=== PATIENT | male | born 1965 | race Hispanic/Latino ===

== ENCOUNTER → 2022-05-23 10:46 | Outpatient (CLI) | payer OTHER, SELFPAY ==
--- NOTE | ~2022-05-23 | CT_ITS ---
EXAMINATION: CT lung screening DATE: 05/23/2022 11:09 INDICATION: Personal history of tobacco abuse. Lung cancer screening. TECHNIQUE: Computed tomography (CT) of the chest was performed without intravenous contrast. The dose -length product was 117.60 mGy-cm. Automated exposure control and iterative reconstruction technique were employed. COMPARISON: None FINDINGS: Heart size is normal. No significant pleural or pericardial effusion. No endobronchial lesi ons. No focal airspace consolidation. No thoracic lymphadenopathy. Bibasilar atelectasis. No endobron chial lesions. There is a 2 mm right upper lobe nodule. No pneumothorax. Mild thoracic spondylosis. N o lytic or blastic lesions. IMPRESSION: 1. Lung-RADS category 2: Benign appearance or behavior. Continue annual screening with noncontrast lo w-dose chest CT in 12 months. Reviewed, dictated and finalized at location A. ALION FIRE CHIEF IMPRESSION: 1. Lung-RADS category 2: Benign appearance or behavior. Continue annual screeni ng with noncontrast low-dose chest CT in 12 months.
== END ==
PROVIDERS: PCP Internal Medicine; Visit Provider Internal Medicine
DX: Z12.2 Encounter for screening for malignant neoplasm of respiratory organs (principal); Z87.891 Personal history of nicotine dependence
CPT/HCPCS: 71271

== ENCOUNTER → 2023-06-02 07:52 | Outpatient (CLI) | payer OTHER, SELFPAY ==
--- NOTE | ~2023-06-02 | CT_ITS ---
EXAMINATION: CT lung screening DATE: 06/02/2023 08:22 INDICATION: Personal history nicotine dependence, current smoker with 43 pack year history TECHNIQUE: Computed tomography (CT) of the chest was performed without intravenous contrast. The dose -length product (DLP) was 147.31 mGy-cm. Automated exposure control and iterative reconstruction tech [employer] were employed. COMPARISON: 05/23/2022 FINDINGS: There is mild emphysema. There is a stable 2 mm nodule of the right upper lobe on image 31. There is mild atelectasis or scarring in the right lower lobe. No pleural effusion or pneumothorax. The lungs are free of acute opacities. No pathologically enlarged thoracic lymph nodes are identified . The heart size is normal. There is mild thoracic spondylosis. IMPRESSION: 1. Lung-RADS category 2: Benign appearance or behavior. Continue annual screening with noncontrast lo w-dose chest CT in 12 months. Reviewed, dictated and finalized at location B. NG MACHINE OPERATOR IMPRESSION: 1. Lung-RADS category 2: Benign appearance or behavior. Continue annual screeni ng with noncontrast low-dose chest CT in 12 months.
== END ==
PROVIDERS: PCP Internal Medicine; Visit Provider Internal Medicine
DX: Z12.2 Encounter for screening for malignant neoplasm of respiratory organs (principal); Z87.891 Personal history of nicotine dependence
CPT/HCPCS: 71271

== ENCOUNTER 2024-05-21 11:54 | Outpatient (CLI) | payer OTHER, SELFPAY ==
--- NOTE | 2024-06-16 10:34 | P.SLEEP_ITS ---
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 He has a diagnosis of obstructive sleep apnea, his machine was from 2011 and he needs a new device. He says he can not use is current machine because it is hard to breathe with it. He has lost some weight. The manager technology note also indicates that the patient has tried a mandibular advancement device because he was intolerant of CPAP. He occasionally snores, and it is rarely loud enough that others complain. He does not awaken from sleep feeling short of breath or awaken at night with heartburn, belching or coughing. He occasionally has difficulty sleeping when he has a cold. He does not sweat excessively at night or notice his heart pounding or beating irregularly at night. He rarely falls asleep during the day, never involuntarily or while driving. He does not have loss of muscle tone with strong emotion. He does not have daytime difficulties due to excessive sleepiness, he is a laborer salvage. He does not feel paralyzed on waking or falling asleep. He does not feel afraid to go to sleep. He rarely has nightmares. He occasionally remembers his dreams. He rarely has racing thoughts and rarely has feelings of sadness or depression. He never feels anxiety. He occasionally has muscular tension, occasionally notices parts of his body jerking. He does not kick at night nor does he have crawling or aching feelings in his legs. He does not have any kind of leg pain at night. He does not have morning jaw pain. He does not grind his teeth at night. He occasionally is bothered by pain during the day. He never is awakened by pain at night. He occasionally wakes up feeling stiff in the morning, occasionally awakens with sore achy muscles. He does not wake up with pain in the neck and spine. He has memory problems and concentration difficulties due to a stroke. Normal bedtime is 7:00 p.m. falling asleep immediately waking once at night in the middle of the night. He may awaken and stay awake afterwards. He keeps a similar schedule on weekends. He estimates getting 7 hours of sleep at night. He may feel refreshed after a short 10-15 minute nap. Most of the time he feels adequate on waking. Habits: Tobacco : Former smoker, quit 6 months ago Coffee: 2 cups of coffee a day Alcohol: none Recreational substances: none [facility] Past Medical History Medical History (Updated 06/16/24 @ 11:39 by Geri Salamanca MD) Obstructive sleep apnea Hyperlipidemia Gait abnormality Dysphagia Vision abnormalities Left-sided neglect Acute right MCA stroke HTN (hypertension) Social History Social History Smoking status: Current some day smoker Tobacco type: cigarettes Alcohol intake: former Substance use: unknown Substance use type: does not use Do You Feel Safe in your Home?: Yes Lack of Transportation: No Lack of Food: Never True Current Housing: I Have Housing Concerned About Future Housing: No Difficulty Paying Gas/Electric Bills: No Difficulty Paying for Meds: No Currently Unemployed: No Education: Grade School Difficulty w/ Childcare or Family Care: No Spiritual care concerns: No Medications Home Medications ?Medication ?Instructions ?Recorded ?Confirmed ?Type acetaminophen 325 mg tablet 650 mg (2 x 325 mg) PO Q6H PRN 12/26/23 Rx Pain 1-10 #90 tabs aspirin 81 mg chewable tablet 81 mg PO DAILY #30 tabs 12/26/23 Rx atorvastatin 80 mg tablet 80 mg PO HS #30 tabs 12/26/23 Rx lisinopril 5 mg tablet 5 mg PO DAILY #30 tabs 12/26/23 Rx Sleep Procedure A full night polysomnogram using the [employer] multi-channel system recorded the standard physiologic parameters including EEG, EOG, submentalis EMG, anterior tibialis EMG, EKG, body position, nasal and oral airflow using nasal pressure sensor and thermistor. Respiratory parameters of chest and abdominal movements were recorded with Respiratory Inductance Plethysmography belts. Oxygen saturation was recorded by pulse oximetry. Video monitoring was also performed. Sleep stages, periodic limb movements, and EEG arousals were scored in 30 second epochs according to the criteria of the AASM Scoring Manual. The Apnea-Hypopnea Index was calculated using CMS guidelines for definition of hypopnea while scoring respiratory events. This was ordered as a split night study however he did not qualify to start CPAP therefore this was conducted as a full night basic nocturnal polysomnogram. He attempted to sleep supine but was unable to sleep in this position. Sleep Architecture The total recording time was 564.2 minutes. The total sleep time was 325.0 m inutes. Sleep latency was 6.8 minutes. REM latency was 70.0 minutes. Sleep efficiency was 57.6%. The patient had 17 awakenings for an awakening index of 3.1. Wake after sleep onset time was 232.0 minutes. The patient spent 29.0 minutes, 8.9% of total sleep time in Stage N1. The patient spent 177.5 minutes, 54.6% in Stage N2. The patient spent 39.0 minutes, 12.0% in Stage N3. The patient spent 79.5 minutes, 24.5% in Stage REM sleep. Respiratory Analysis The patient had 2 hypopneas, no obstructive apneas, no mixed apneas, and no central apneas for an overall Apnea Hypopnea Index of 0.4. The REM Apnea Hypopnea Index was 4.5. The NREM Apnea Hypopnea Index was 0. The patient had a Central Apnea Hypopnea Index of 0. There were no Respiratory Effort Related Arousals. The Respiratory Disturbance Index is 1.7 events per hour. There was no evidence of Олег-Ward Respirations. Arousals There were 31 total arousals for an arousal index of 5.7. There were 19 spontaneous arousals for an index of 3.5. There were 8 arousals due to respiratory events for an index of 1.5. There were 3 arousals due to periodic limb movements for an index of 0.6. There were 2 arousals due to isolated limb movements for an index of 0.4. Periodic Limb Movements The patient had 32 isolated limb movements with an index of 5.9. The patient had 10 periodic limb movements with an index of 1.8. Patient had a total of 42 limb movements with a total limb movement index of 7.8. Oximetry Data The patient had an average oxygen saturation of 95.5% in sleep with a minimum oxygen saturation of 90% and a maximum oxygen saturation of 98%. The patient had 2 oxygen desaturations that were 4% or greater resulting in an Oxygen Desaturation Index of 0.4. The patient spent no time with an oxygen saturation below 88%. Snoring Profile Snoring was mild and intermittent. Cardiac Profile The EKG showed normal sinus rhythm, average pulse rate of 47.3 bpm with a minimum pulse of rate of 42 bpm and a maximum pulse rate of 70 bpm. No arrhythmias noted. EEG Profile Unremarkable, no evidence of seizures. Assessment and Plan Assessment and Plan (1) Snoring: Code(s): R06.83 - Snoring Status: Acute Assessment and Plan: This basic nocturnal polysomnogram on 05/21/2024 does not show significant sleep disordered breathing. The apnea-hypopnea index is 0.4, the lowest saturation is 90% and the patient had mild intermittent snoring. The patient did not have s ignificant limb movements during the study. He did have a low sleep efficiency of 57.6%, normal sleep efficiency is 80%. This means that the patient spent much more of the night awake than expected for a normal person. This may be due to taking naps in the day. He had normal sleep architecture with 24.5% REM. The patient did not spend time on his back while sleeping. This may have reduced the number of obstructive events. It is possible that his weight loss has led to his elimination of obstructive sleep apnea. Every night of sleep is different. He may sleep differently at home and on another night he may show more evidence of obstructive sleep apnea however this study is negative for apnea desaturation or Олег-Ward respiration. He does not have other sleep fragmenting processes that would lead to daytime dysfunction. Data The data obtained during this sleep study is adequate for interpretation. Certification This sleep study has been reviewed by a board certified sleep medicine physician.
[2024-06-16 11:46] VITALS: BMI 27.9
== END 2024-05-22 06:39 | disposition home or self-care (01) ==
PROVIDERS: PCP Internal Medicine; Visit Provider Internal Medicine
DX: R06.83 Snoring (principal); G47.30 Sleep apnea, unspecified
CPT/HCPCS: 95810

== ENCOUNTER 2024-11-19 09:34 | Outpatient (CLI) | payer OTHER, SELFPAY ==
--- NOTE | ~2024-11-19 | CT_ITS ---
CT Scan of the Chest without Contrast: Clinical Indication: Lung cancer screening, nicotine dependence Technique: Contiguous sections were acquired throughout the chest without intravenous contrast. Dose reduction technique was used on this scan by utilizing automated exposure control and iterative recon struction technique. The dose-length product (DLP) was 142.60 mGy-cm. COMPARISON: 06/02/2023 Findings: There is no evidence of any significant mediastinal, hilar or axillary lymphadenopathy. The coronary artery calcifications are present. There is no evidence of pleural or pericardial effusion. The lungs are clear. No pulmonary nodules or infiltrates are noted. Images through the upper abdomen reveal no abnormalities. Impression: Lung RADS 1: Negative. 12 month follow-up screening CT advised. Reviewed, dictated and finalized at location . Impression: Lung RADS 1: Negative. 12 month follow-up screening CT advised.
--- OUTSIDE RECORDS SUMMARY | 2024-11-19 09:57 | XMS_ITS | Clinical Summary ---
Author Organization [facility] Address [address] [place] [address] Care Team Providers Care Contract Attorney Name Role Phone Da Del Rio MD Primary Care Provider [phone] Source Comments [facility],non-owned Affiliates and Associated Physician Practices is amultiple site organization consisting of ambulatory clinics and hospital sitesin [place], [place], [place] and [place]. This disclosure is being madepursuant to the Care Everywhere program and may not contain all information available regarding this patient. Last updated 18.[facility] Allergies Active Allergy Reactions Criticality Noted Date Comments Augmentin Rash Medium 04/17/2024 Medications * Be aware that medications may not be up to date on this document. Alwaysverify current medications with the patient. lisinopril (Prinivil; Zestril) 10 MG tablet Take 1 (one) tablet by mouth once daily Taking 5mg daily. 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 Received tissue plasminogen activator (t-PA) less than 24 hours prior to arrival 12/11/2023 Retained metal fragments 12/11/2023 Weakness 12/10/2023 Facial droop 12/10/2023 Left-sided weakness 12/10/2023 Hypertension 12/10/2023 Acute ischemic right MCA stroke 12/10/2023 Encounters Date Type Department Care Team Description 10/08/2024 1:10 AM CDT Clinical Support [facility] - Cardiology [address], [address] [place] [address] Acute ischemic right MCA stroke (HCC) 09/03/2024 1:10 AM CDT Clinical Support [facility]iology [address] [facility], [address] [place] [address] Acute ischemic right MCA stroke from Last 3 Months Social History Tobacco Use Types Packs/Day Years Used Date Smoking Tobacco: Former Cigarettes Smokeless Tobacco: Never Alcohol Use Standard Drinks/Week Comments Not Currently 0 (1 standard drink = 0.6 oz pur e alcohol) AUDIT-C Answer Date Recorded Q1: How often do you have a drink containing alcohol? Never 12/10/2023 Q2: How many drinks containi ng alcohol do you have on a typical day when you are drinking? Patient does not drink Q3: How often do you have si x or more drinks on one occasion? Never 12/10/2023 Overall Financial Resource Strain (CARDIA) Answe r Date Recorded How hard is it for you to pa y for the very basics like food, housing, medical care, and heating? Not very hard 12/10/2023 PHQ-2 Answer Date Recorded Patient Health Questionnaire-2 Score 0 12/16/2023 [facility] Occupat ional Health - Occupational Stress Questionnaire Answer Date Recorded Do you feel stress - tense, restless, nervous, or anxious, or unable to sleep at night because your mind is troubled all the time - these days? Not at all 12/10/2023 Hunger Vital Sign Answer Date Recorded Within the past 12 months, y ou worried that your food would run out before you got the money to buy more. Never true 12/10/19 24 Within the past 12 months, t he food you bought just didn't last and you didn't have money to get more. Never true 12/10/2023 PRAPARE - Transportation Answer Date Re corded In the past 12 months, has l ack of transportation kept you from medical appointments or from getting medications? No 11/18 In the past 12 months, has l ack of transportation kept you from meetings, work, or from getting things needed for daily living? No 12/10/2023 Housing Stability Vital Sign Answer Arnie e Recorded In the last 12 months, was t here a time when you were not able to pay the mortgage or rent on time? No 12/10/2023 In the last 12 months, how many places have you lived? 1 12/10/2023 In the last 12 months, was t here a time when you did not have a steady place to sleep or slept in a [place] health care facility (including now)? 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 Gender Identity Not on file Sexual Orientation Not on file Last Filed Vital Signs Vital Sign Reading Time Taken Comments Blood Pressure 118/73 04/17/2024 12:44 PM CDT Pulse 56 04/17/2024 12:44 PM CDT Temperature 36.6 C (97.8 F) 12/16/2023 7:29 AM CDT Respiratory Rate 10 04/17/2024 12:44 PM CDT Oxygen Saturation 98% 01/17/2024 2:16 PM CDT Inhaled Oxygen Concentration - - Weight 76.2 kg (168 lb) 04/17/2024 12:44 PM CDT Height 167.6 cm (5' 6) 12/13/2023 7:00 AM CDT Body Mass Index 27.12 12/13/2023 7:00 AM CDT Plan of Treatment Upcoming Encounters Date Type Department Care Team (Late st Contact Info) Description 12/17/2024 1:10 AM CDT Clinical Support [facility] - Cardiology [address] [facility], [address] [address] 01/21/2025 1:10 AM CDT Clinical Support [facility] - Cardiology [address] [facility], [address] [address] 02/25/2025 1:10 AM CDT Clinical Support [facility] - Cardiology [address] [facility], [facility] [address] [place] [phone] Health Maintenance Due Date Last Done Comments COLOGUARD (AGES 45-75) - COLON CA SCREENING 1966 COLON MONITORING 1966 COLONOSCOPY - COLON CA SCREENING 1966 CT COLONOGRAPHY - COLON CA SCREENING 1966 Colorectal Cancer Screening 1966 FIT - COLON CA SCREENING 1966 FLEX SIG - COLON CA SCREENING 1966 HIV SCREENING 1981 HEPATITIS C SCREENING 09/18/1984 DTAP/TDAP/TD VACCINES (1 - Tdap) 1985 HEPATITIS B VACCINE (1 of 3 - 19+ 3-dose series) 1985 PNEUMOCOCCAL VACCINE 50+ (1 of 1 - PCV) 2016 ZOSTER VACCINE (1 of 2) 2016 COVID-19 VACCINE ( season) 2024 05/27/2021, 10/06/2020, 09/14/2020 DEPRESSION SCREENING 06/19/2024 12/10/2023 INFLUENZA VACCINE (Season Ended) 2025 SCREENING FOR DIABETES 12/15/2026 , 12/15/2023, 12/14/2023, Additional history exists HIB VACCINE Aged Out No longer eligi ble based on patient's age to complete this topic HPV VACCINE Aged Out No longer eligi ble based on patient's age to complete this topic MENINGOCOCCAL (Group B) VACCINE SHARED DECISION-MAKING Aged Out No longer eligible based on patient's age to complete this topic MENINGOCOCCAL GROUPS A/C/Y/W VACCINE Aged Out No longer eligible based on patient's age to complete this topic Medical Devices Implanted Type Area Labor Specialist Device Identifier Shelf Expiration Date Model / Serial / Lot Sys Crd Mntr Rvl Linq Ii - [id number] Implanted:Qty: 1 on 12/15/2023 by Chavo Martinez MD at [facility] [id number] 02/25/2025 LNQ22 SYS / [id number] / N/A Description:R-wave: 0.47 Procedures Procedure Name Priority Date/Time Associated Diagnosis Comments GA ILR DEVICE INTERROGAT REMOTE Routine 10/21/2024 10:03 AM CDT Acute ischemic right MCA stroke (HCC) CARDIAC PROCEDURE ORDER 10/07/2024 GA ILR DEVICE INTERROGAT REMOTE Routine 09/09/2024 1:26 PM CDT Acute ischemic right MCA stroke CARDIAC PROCEDURE ORDER 09/02/2024 BASIC METABOLIC PANEL (CALCIUM TOTAL) Routine 12/16/2023 5:28 AM CDT from Last 3 Months or Most Recently Relevant to Health Maintenance Results * GA ILR DEVICE INTERROGAT REMOTE (10/21/2024 10:03 AM CDT) Narrative Gary Rawls MD - 10/21/2024 10:03 AM CDT Gary Rawls MD 10/21/2024 10:03 AM Dear Rafael Esteban, I reviewed the remote interrogation of your loop recorder. Your device's sensing is appropriate and stable. During this most recent monitored period ending on 10/07/2024 your atrial fibrillation/tachycardia burden was 0% and you had no significant arrhythmias. Device function is normal, no programming changes are required, and no medications will need to be changed. Please call our offices if you have any further questions. Sincerely, Gary Rawls 10/21/2024 us Gary Rawls MD PROCEDURE/MINOR SURGICAL ORDERAB LES Final Result * CARDIAC PROCEDURE ORDER (10/07/2024) Only the most recent of2 resultswithin the time period is included. Narrative 10/07/2024 Ordered by an unspecified provider. us Scanned Document CARDIAC SERVICES ORDERABLES Fin al Result * GA ILR DEVICE INTERROGAT REMOTE (09/09/2024 1:26 PM CDT) Narrative Renata Wong MD - 09/09/2024 1:26 PM CDT Renata Wogn MD 09/09/2024 1:27 PM Remote Interrogation: Pertinent Findings: Device function within normal limits. No events noted. Renata Wong MD Cardiac Electrophysiology Renata Wong MD PROCEDURE/MINOR SURGICAL ORDERAB LES Final Result * (ABNORMAL) BASIC METABOLIC PANEL (CALCIUM TOTAL) (12/16/2023 5:28 AM CDT) BUN 17 7 - 26 mg/dL 12/16/2023 6:51 AM [facility] Creatinine 0.71 0.71 - 1.16 mg/dL 12/16/2023 6:51 AM [facility] Sodium 140 136 - 145 mmol/L 12/16/2023 6:51 AM [facility] Potassium 4.2 3.5 - 4.5 mmol/L 12/16/2023 6:51 AM [facility] Chloride 107 98 - 107 mmol/L 12/16/2023 6:51 AM [facility] CO2 22 22 - 29 mmol/L 12/16/2023 6:51 AM [facility] Glucose 84 70 - 115 mg/dL 12/16/2023 6:51 AM [facility] Calcium 9.5 8.4 - 10.2 mg/dL 12/16/2023 6:51 AM [facility] Anion Gap 11 6 - 16 12/16/2023 6:51 AM [facility] BUN/Creatinine Ratio 24(H) 7 - 23 12/16/2023 6:51 AM [facility] Osmolality Calculated 291 275 - 295 mOsm/kg 12/16/2023 6:51 AM [facility] eGFR by CKD-EPI >90 >=90 mL/min/1.7 3 m2 12/16/2023 6:51 AM [facility] Blood BLOOD SPECIMEN / Unknown Lab Venipuncture / Unknown 12/16/2023 5:28 AM CDT 12/16/2023 6:21 AM T Domenic Marion MD LAB - CHEMISTRY ORDERABLES Fin al Result [facility] [address] [place] [address], [facility] [phone] from Last 3 Months or Most Recently Relevant to Health Maintenance Insurance [facility] Advance Directives * Full Code (Latest Code Status on File) Date Activated Date Inactivated Comments 12/10/2023 5:16 PM 12/16/2023 5:03 PM Care Teams Contract Attorney Relationship Specialty Start Date End Date Da Del Rio MD [address] [address] PCP - General 10/07/11
--- OUTSIDE RECORDS SUMMARY | 2024-11-19 09:57 | XMS_ITS | Encounter Summary ---
Author Organization [facility] Health Address [address] [facility] [place] [address] Care Team Providers Care Operations Specialists Name Role Phone Da Del Rio MD Primary Care Provider [phone] Encounter Details Date Type Department Care Team (Late st Contact Info) Description 12/12/2023 Ophth Exam [facility] - Ophthalmology [address] [place] [phone] Yoly Herrera MD [address] [place] [id number] Social History Tobacco Use Types Packs/Day Years Used Date Smoking Tobacco: Some Days Cigarettes Smokeless Tobacco: Never Alcohol Use Standard [...] Recorded Patient Health Questionnaire-2 Score 0 12/16/2023 [facility] [place] of Occupat ional Health - Occupational Stress [...] place to sleep or slept in a mcc (including now)? 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 Answer Date of Assessment Author No 12/10/2023 8:43 PM Temi Galeano RN * Is person blind or have serious difficulty seeing? Answer Date of Assessment Author No 12/10/2023 8:43 PM Temi Galeano RN * Does person have serious difficulty walking/climbing stairs? Answer Date of Assessment Author No 12/10/2023 8:43 PM Temi Galeano RN * Does person have difficulty dressing/bathing? Answer Date of Assessment Author No 12/10/2023 8:43 PM Temi Galeano RN * Does person have difficulty doing errands alone? Answer Date of Assessment Author No 12/10/2023 8:43 PM Temi Galeano RN * Over the past 2 weeks, how often have you been bothered by any of the following problems? Question Answer Date of Assessment Author Little interest or pleasure in doing things Not at all 12/14/2023 7:48 AM MATTHEWT Hima Taylor RN Feeling down, depressed, or hopeless Not at all 12/14/2023 7:48 AM MATTHEWT Hima Taylor RN Patient Health Questionnaire -2 Score 0 12/14/2023 7:48 AM CDT Hima Taylor RN * Question Answer Date of Assessment Author Trouble falling or staying asleep, or sleeping too much Not at all 12/14/2023 5:15 AM MATTHEWT [place] RN Feeling tired or having elizabeth le energy Not at all 12/14/2023 5:15 AM MATTHEWT [place] RN Poor appetite or overeating Not at all 12/14/2023 5: 15 AM MATTHEWT [place] RN Feeling bad about yourself - or that you are a failure or have let yourself or your family down Not at all 12/14/2023 5:15 AM MATTHEWT [place] RN Trouble concentrating on things, such as reading the newspaper or watching television Not at all 12/14/2023 5:15 AM MATTHEWT [place] RN Moving or speaking so slowly that other people could have noticed? Or the opposite - being so fidgety or restless that you have been moving around a lot more than usual. Not at all 12/14/2023 5:15 AM Sulma Martin RN Thoughts that you would be better off or hurting yourself in some way Not at all 12/14/2023 5:15 AM MATTHEWT [place] RN Patient Health Questionnaire -9 Score 0 12/14/2023 5:15 AM MATTHEWT [place] RN documented as of this encounter Mental Status * Does person have difficulty concentrating/remembering/making decisions? Answer Entry Date Author No 12/10/2023 8:43 PM MATTHEWT Temi Oliveros RN documented in this encounter Plan of Treatment Upcoming Encounters Date Type Department Care Team (Late st Contact Info) Description 12/17/2024 1:10 AM CDT Clinical Support [facility] - Cardiology [address] [facility], [facility] [place] [address] 01/21/2025 1:10 AM CDT Clinical Support [facility] - Cardiology [address], [facility] [place] [address] 02/25/2025 1:10 AM CDT Clinical Support [facility] - Cardiology [address] [facility], [address] [address] documented as of this encounter Visit Diagnoses Not on filedocumented in this encounter Care Teams Operations Specialists Relationship Specialty Start Date End Date Da Del Rio MD [address] [place] [address] [address] [place] [phone] PCP - General 10/07/11 documented as of this encounter
--- OUTSIDE RECORDS SUMMARY | 2024-11-19 09:57 | XMS_ITS | Encounter Summary ---
Author Organization [facility] Health Address [address] [facility] [place] [address] Care Team Providers Care Carpenters Name Role Phone Da Del Rio MD Primary Care Provider [phone] Encounter Details Date Type Department Care Team (Late st Contact Info) Description 12/11/2023 Ophth Exam [facility] - Ophthalmology [address] [place] [phone] Yoly Herrera MD [address] [place] [phone] Social History Tobacco Use Types Packs/Day Years [...] Date Recorded Patient Health Questionnaire-2 Score 0 12/14/2023 [facility] [place] of Occupat ional Health - Occupational Stress [...] on file 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 Gender Identity Not on file Sexual Orientation [...] [facility] [address] [facility], [facility] [place] [address] 01/21/2025 1:10 AM CDT Clinical Support [facility] - Cardiology [address] [facility], [facility] [place] [address] 02/25/2025 1:10 AM CDT Clinical Support [facility] - Cardiology [address] [facility], [address] [address] documented as of this encounter Visit Diagnoses Not on filedocumented in this encounter Care Teams Carpenters Relationship Specialty Start Date End Date Da Del Rio MD [address] [place] [address] [address] [place] [phone] PCP - General 10/07/11 documented as of this encounter
--- OUTSIDE RECORDS SUMMARY | 2024-11-19 09:57 | XMS_ITS | Data Portability ---
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 Not available 01/17/2024 11:40:28 Plan of Treatment Reminders Order Date Submit Date Provider Last Modified By Organization Details Last Modified Time Details Appointments Any 15 2024 08:15A M Da Del Rio MD Not available Not available Not available Lab urinalysi s, complete [email or web address] (Lab), [address] [place], [address], 07/04/2024 08:08:25 lipid panel, serum 2023 024 [facility] (Lab), [address] [place], [address], 03/04/2024 18:47:11 CMP, serum or plasma [email or web address] (Lab), [address] [place], [address], 03/11/2024 08:24:26 Referral None recorded. Procedures None recorded. Surgeries None recorded. Imaging LDCT, chest, for lung cancer screening - Updated order for 5. 2024 025 [facility] ([facility]), [address] [facility], [place], [address], 11/19/2024 10:10:41 home sleep study - Please call patient to schedule. 2023 024 [email or web address] [facility] ([facility]), [address] [place] [address], [address], 05/09/2024 17:57:29 Medication Orders trazodone 50 mg tablet 2024 025 [email or web address] [facility], [address] [place] [address], [place], [address], 06/27/2024 12:21:10 Patient TargetsNo targets recorded. Patient Instructions Encounter Date Encounter Id Patient Instructions Last Modified By Organization Details Last Modified Time 01/17/2024 [id number] Thank you for your visit to our office today. We would like to request that you reach out to your referring or previous provider and request that they send us a Summary of Care in electronic form, so that we may have it on file in your medical record. At your visit, we had the medical records we needed to provide you with the best possible care; however, for insurance purposes, an electronic Summary of Care is beneficial. Thank you for your assistance in obtaining this information and we look forward to providing continued care to you. Please review your medication list from the Summary of Care for this visit. If there are any differences from what you are currently taking at home, please call us to discuss. [email or web address] Not available 01/17/2024 09:13:14 Homebound Status: Required Home Health Services: Durable Medical Equipment needed: Billing Guidelines CPT code 30150- Transitional Care Management services with moderate medical decision complexity (qfxc-xg-mlur visit within 14 days of discharge). CPT code 88989- Transitional Care Management services with high medical decision complexity (ixcd-od-sbmr visit within 7 days of discharge). [email or web address] Not available 01/17/2024 09:13:14 02/26/2024 [id number] Thank you for your visit to our office today. We would like to request that you reach out to your referring or previous provider and request that they send us a Summary of Care in electronic form, so that we may have it on file in your medical record. At your visit, we had the medical records we needed to provide you with the best possible care; however, for insurance purposes, an electronic Summary of Care is beneficial. Thank you for your assistance in obtaining this information and we look forward to providing continued care to you. Please review your medication list from the Summary of Care for this visit. If there are any differences from what you are currently taking at home, please call us to discuss. Not available 02/26/2024 11:04:57 Homebound Status: Required Home Health Services: Durable Medical Equipment needed: Billing Guidelines CPT code 14886- Transitional Care Management services with moderate medical decision complexity (sxvd-eo-fkdm visit within 14 days of discharge). CPT code 97899- Transitional Care Management services with high medical decision complexity (lotp-rl-rifn visit within 7 days of discharge). Not available 02/26/2024 11:04:57 06/27/2024 [id number] advance care planning: care instructions Not available 06/27/2024 13:04:44 advance directives: care instructions Not available 06/27/2024 13:04:44 [place] Advance Directives Not available 06/27/2024 13:04:44 risk assessment* Not available 06/27/2024 13:04:44 Thank you for your visit to our office today. We would like to request that you reach out to your referring or previous provider and request that they send us a Summary of Care in electronic form, so that we may have it on file in your medical record. At your visit, we had the medical records we needed to provide you with the best possible care; however, for insurance purposes, an electronic Summary of Care is beneficial. Thank you for your assistance in obtaining this information and we look forward to providing continued care to you. Please review your medication list from the Summary of Care for this visit. If there are any differences from what you are currently taking at home, please call us to discuss. INFLUENZA VACCINE Recommended today, but patient declined Ordered Patient will get at local pharmacy/health department Shayleemaryellen nt has egg allergy Next vaccination to be given fall Next vaccination to be given fall TD/TDAP Patient will get at local pharmacy/health department PNEUMONIA VACCINE Patient will get at local pharmacy/health department SHINGLES Patient will get at local pharmacy/health department PSA No screening necessary patient is up to date COLORECTAL SCREENING No screening necessary patient is up to date DEPRESSION SCREENING Positive BMI Appropriate NUTRITION Continue healthy eating & exercise PHYSICAL ACTIVITY Appropriate physical activity ALCOHOL USE No alcohol use TOBACCO USE former smoker LUNG CANCER SCREENING Non Smoker-not indicated Recomm endation for Lung Cancer Screening with LDCT- ordered Recommen dation for Lung Cancer Screening with LDCT- Patient declined Not indicated until age 51 Lung Cancer Screening with LDCT- 05/22/2023 SEXUALLY ACTIVE Yes, Patient is in monogamous relationship HEPATITIS C SCREENING Not indicated GLUCOSE SCREENING Not needed LIPID SCREENING Not needed [email or web address] Not available 06/27/2024 12:30:12 Homebound Status: Required Home Health Services: Durable Medical Equipment needed: Billing Guidelines CPT code 22293- Transitional Care Management services with moderate medical decision complexity (mofr-ld-jqxp visit within 14 days of discharge). CPT code 77779- Transitional Care Management services with high medical decision complexity (aczv-qx-bnwn visit within 7 days of discharge). [email or web address] Not available 06/27/2024 11:05:08 Reason for Referral None Reported. Results Created Date Observation Date Name Description Value Unit Range Abnormal Flag Note LastModifiedBy Organization Detail LastModifiedTime 06/27/1906/27/2024 URINA LYSIS COMPL ETE, IRIS color LIGHT- YELLOW Not Available [facility] (Lab) [address] [place], [address], 06/27/2024 19:09:30 06/27/1906/27/2024 URINA LYSIS COMPL ETE, IRIS appear CLEAR Not Available [facility] (Lab) [address] [place], [address], 06/27/2024 19:09:30 06/27/1906/27/2024 URINA LYSIS COMPL ETE, IRIS specific gravity 1.008 1.001- 1.030 Not Available [facility] (Lab) [address] [place], [address], 06/27/2024 19:09:30 06/27/19 25 06/27/2024 URINA LYSIS COMPL ETE, IRIS pH 7.0 pH_un its 5.0-9. 0 Not Available [facility] (Lab) [address] [place], [address], 06/27/2024 19:09:30 06/27/19 25 06/27/2024 URINA LYSIS COMPL ETE, IRIS leukocytes NEGATI VE ashley/u L negati ve- Not Available [facility] (Lab) [address] [place], [address], 06/27/2024 19:09:30 06/27/1906/27/2024 URINA LYSIS COMPL ETE, IRIS nitrite NEGATI VE negati ve- Not Available [facility] (Lab) [address] [place], [address], 06/27/2024 19:09:30 06/27/19 25 06/27/2024 URINA LYSIS COMPL ETE, IRIS protein NEGATI VE mg/dL negati ve- Not Available [facility] (Lab) [address] [place], [address], 06/27/2024 19:09:30 06/27/19 25 06/27/2024 URINA LYSIS COMPL ETE, IRIS glucose NORMAL mg/dL normal - Not Available [facility] (Lab) [address] [place], [address], 06/27/2024 19:09:30 06/27/19 25 06/27/2024 URINA LYSIS COMPL ETE, IRIS ketones NEGATI VE mg/dL negati ve- Not Available [facility] (Lab) [address] [place], [address], 06/27/2024 19:09:30 06/27/19 25 06/27/2024 URINA LYSIS COMPL ETE, IRIS urobilinogen NORMAL mg/dL normal - Not Available [facility] (Lab) [address] [place], [address], 06/27/2024 19:09:30 06/27/1906/27/2024 URINA LYSIS COMPL ETE, IRIS bilirubin NEGATI VE mg/dL negati ve- Not Available [facility] (Lab) [address] [place], [address], 06/27/2024 19:09:30 06/27/1906/27/2024 URINA LYSIS COMPL ETE, IRIS blood NEGATI VE mg/dL negati ve- Not Available [facility] (Lab) [address] [place], [address], 06/27/2024 19:09:30 06/27/19 25 06/27/2024 URINA LYSIS COMPL ETE, IRIS white blood cells 0-8 /i??h pfi?? 0-8 Not Available [facility] (Lab) [address] [place], [address], 06/27/2024 19:09:30 06/27/1906/27/2024 URINA LYSIS COMPL ETE, IRIS red blood cells 0-4 /i??h pfi?? 0-4 Not Available [facility] (Lab) [address] [place], [address], 06/27/2024 19:09:30 06/27/1906/27/2024 URINA LYSIS COMPL ETE, IRIS bacteria NONE Not Available [facility] (Lab) [address] [place], [address], 06/27/2024 19:09:30 06/27/1906/27/2024 URINA LYSIS COMPL ETE, IRIS mucous OCCASI ONAL /i??l pfi?? abnormal Not Available [facility] (Lab) [address] [place], [address], 06/27/2024 19:09:30 06/27/19 25 06/27/2024 URINA LYSIS COMPL ETE, IRIS squamous epithelial NONE /i??l pfi?? abnormal Not Available [facility] (Lab) [address], [place], [address], 06/27/2024 19:09:30 01/18/20 24 06/02/2023 LDCT, chest , for lung cance r scree paco No observ ation record ed. [facility] [address], [place], [address], 01/18/2024 13:33:39 06/20/19 25 05/21/2024 sleep study No observ ation record ed. [address] [facility] [address] [facility], [place], [address], 07/03/2024 12:32:42 Result Notes None recorded. Problems Name Problem SNOMED Code Status Onset Date Resolution Date Notes Provider Name and Address Organization Details Recorded Time Internal hemorrhoi ds 26307343 Active 2022 Da Del Rio MD [address], [place], [address] , [employer] 3 16:03:41 Nodule of lung 473524996 Active 2023 Da Del Rio MD [address], [place], [address] , [employer] 4 09:54:19 Cerebrova scular accident 143505608 Active 2023 Da Del Rio MD [address], [place], [address] , [employer] 4 11:40:32 Slurred speech 255350318 Active 2023 Da Del Rio MD [address], [place], [address] , [employer] 4 11:40:41 Hyperlipi demia 66821065 Active 2023 Da Del Rio MD [address], [place], [address] , [facility] [employer] [facility] [employer] [facility] 4 11:40:53 Low vision left eye, normal vision right eye 17625545589 9108 Active 2023 Da Del Rio MD [address], [place], [address] , [facility] [employer] [facility] 4 11:41:49 Urinary symptoms 268426368 Active 2024 Da Del Rio MD [address], [place], [address] , [facility] [employer] 5 11:53:58 Insomnia 501490222 Active 2024 Da Del Rio MD [address], [place], [address] , [facility] [employer] [facility] 5 11:54:24 Acute bronchiti s 85667405 Completed Not Available [facility] 3 04:53:19 Impacted cerumen in right ear 23176290831 10720 Completed 202105/09/2022 Not Available [facility] 3 04:53:19 Abdominal pain 53090498 Completed Not Available [facility] 3 04:53:20 Adult health examinati on Active 2021 Not Available [facility] 3 04:53:20 Ganglion cyst of right wrist 67135794036 9109 Active 2021 Not Available [facility] 3 04:53:20 Epidermoi d cyst of skin 035752458 Active 2021 Not Available [facility] 3 04:53:20 Screening for malignant neoplasm of prostate Completed 202112/21/2021 Not Available [employer] 3 04:53:20 Essential hypertens ion 16757736 Active 2020 Not Available [employer] 3 04:53:20 Allergic rhinitis 92049895 Active Not Available [facility] 3 04:53:20 Sleep apnea 69149466 Active Not Available [facility] 3 04:53:20 Red eye Completed Not Available [facility] 3 04:53:20 Smoker 27552801 Active Not Available [facility] 3 04:53:20 Erectile dysfuncti on 790457749 Active 2020 Not Available [facility] 3 04:53:21 Bleeding gums 72540311 Completed Not Available [facility] 3 04:53:21 Problem Notes None recorded. Procedures Surgical History Date Name Laterality Status Provider Name and Address Organization Details Recorded Time 5 Advanced Care Planning completed Manuela Rodriguez RN [facility] 06/27/2024 12:19:45 4 Transitional_ Care_Manageme nt completed YOUSIF Busch [facility] 02/26/2024 11:04:57 4 Transitional_ Care_Manageme nt completed Loulou Arizmendi [facility] 01/17/2024 09:13:14 other completed Not Available [facility] 06/2022 04:44:20 Imaging Results None recorded. Procedure Notes None recorded. Medical Equipment None Reported. Allergies Allergen ID Allergen Name Allergen Category Reaction Reaction Severity Criticality Documentation Date Start Date Code Code System Note Provider Name and Address Organization Details Recorded Time 8214 Augmentin medicatio n hives Not available Not available 08/17/2022 95772 2 RxNorm Not Available [facility] 3 05:04:19 Medications Name Sig Start Date Stop Date Status Note LastModified by Organization Details LastModified Time amoxicill in 500 mg capsule Take 1 capsule every 8 hours by oral route. active Not Available Not Available No t Available Augmentin 875 mg-125 mg tablet Take 1 tablet twice a day by oral route for 7 days. 09/16 completed Not Available Not Available Not Available atorvasta tin 80 mg tablet TAKE 1 TABLET BY MOUTH ONCE DAILY active Not Available Not Available No t Available clindamyc in HCl 300 mg capsule Take 1 capsule every 6 hours by oral route. active Not Available Not Available No t Available trazodone 50 mg tablet TAKE 1 TABLET BY MOUTH NEEDED AT BEDTIME 2024 active [facility] 10/24/24 NOV 03/03/25 ok to rf Not Available Not Available Not Available azithromy deny 250 mg tablet TAKE 2 TABLETS (500 MG) BY ORAL ROUTE ONCE DAILY FOR 1 DAY THEN 1 TABLET (250 MG) BY ORAL ROUTE ONCE DAILY FOR 4 DAYS 05/22 completed Not Available Not Available Not Available ibuprofen 800 mg tablet active Not Available Not Available Not Available hydrocodo ne 5 mg-acetam inophen 325 mg tablet TK 1 T PO Q 6 H PRN P 09/07 completed Not Available Not Available Not Available lisinopri l 20 mg tablet TAKE 1 TABLET BY MOUTH EVERY DAY active Not Available Not Available No t Available ondansetr on HCl 4 mg tablet TK 1 T PO Q 12 H 09/07 completed Not Available Not Available Not Available Doc-Q-Lac e 100 mg capsule active Not Available Not Available Not Available metronida zole 500 mg tablet 09/07 completed Not Available Not Available Not Available ciproflox acin 500 mg tablet TK 1 T PO Q 12 H 09/07 completed Not Available Not Available Not Available sildenafi l 100 mg tablet Take 1 tablet every day by oral route as directed . active Not Available Not Available No t Available ciproflox acin 0.3 % eye drops 07/23 completed Not Available Not Available Not Available Stool Softener (docusate calcium) 240 mg capsule TK ONE C PO D 09/07 completed Not Available Not Available Not Available lisinopri l 10 mg tablet TAKE 1 TABLET BY MOUTH EVERY DAY 01/23 completed decrease d to 5mg qd Not Available Not Available Not Available polymyxin B sulfate 10,000 unit-trim ethoprim 1 mg/mL eye drops 07/23 completed Not Available Not Available Not Available aspirin 81 mg chewable tablet CHEW AND SWALLOW 1 TABLET BY MOUTH ONCE DAILY active Not Available Not Available No t Available lisinopri l 5 mg tablet TAKE 1 TABLET BY MOUTH ONCE DAILY active Not Available Not Available No t Available levofloxa deny 500 mg tablet active Not Available Not Available No t Available methylpre dnisolone 4 mg tablets in a dose pack TK UTD 07/23 completed Not Available Not Available Not Available doxycycli ne hyclate 100 mg tablet Take 1 tablet twice a day by oral route. active Not Available Not Available No t Available naproxen 500 mg tablet 07/23 completed Not Available Not Available Not Available neomycin- polymyxin -hydrocor t 3.5 mg-10,000 unit/mL-1 % ear drops,kedar p INSTILL 3 DROPS IN BOTH EARS BID 09/07 completed Not Available Not Available Not Available Cialis 10 mg tablet Take 1 tablet every day by oral route. 09/18 completed Not Available Not Available Not Available Centrum Silver 09/16 completed Not Available Not Available Not Available Probiotic QD 2013 active Not Available Not Available Not Avai lable Suprep Bowel Prep Kit 17.5 gram-3.13 gram-1.6 gram oral solution TAKE DIRECTED active Not Available Not Available No t Available ID NOW COVID-19 Test Kit TEST DIRECTED TODAY 08/23 completed Not Available Not Available Not Available Vitals Date Recorded Body height Body mass index (BMI) Body weight Body temperature Heart rate Oxygen saturation Oxygen saturation in Arterial blood by Pulse oximetry Systolic blood pressure Diastolic blood pressure Provider Name and Address Organization Details Last Updated DateTime 5 165.1 cm 28.5 kg/m2 67150.3 g 97.6 [degF] 62 /min 98 % 98 % 119 mm[Hg] 78 mm[Hg] Mili flores [employer] 5 11:11:13 Date Recorded Body height Body mass index (BMI) Body weight Body temperature Heart rate Oxygen saturation Oxygen saturation in Arterial blood by Pulse oximetry Systolic blood pressure Diastolic blood pressure Provider Name and Address Organization Details Last Updated DateTime 5 165.1 cm 29.1 kg/m2 57666.6 6 g 97.5 [degF] 46 /min 97 % 97 % 112 mm[Hg] 72 mm[Hg] YOUSIF Benton [employer] 5 11:52:26 Date Recorded Body height Body mass index (BMI) Body weight Body temperature Heart rate Oxygen saturation Oxygen saturation in Arterial blood by Pulse oximetry Systolic blood pressure Diastolic blood pressure Provider Name and Address Organization Details Last Updated DateTime 4 165.1 cm 29.6 kg/m2 83086.4 4 g 97.8 [degF] 70 /min 99 % 99 % 118 mm[Hg] 68 mm[Hg] Loulou Arizmendi [employer] 4 09:08:47 Date Recorded Body height Body mass index (BMI) Body weight Body temperature Heart rate Oxygen saturation Oxygen saturation in Arterial blood by Pulse oximetry Systolic blood pressure Diastolic blood pressure Provider Name and Address Organization Details Last Updated DateTime 4 165.1 cm 28.8 kg/m2 15487.4 8 g 98.4 [degF] 70 /min 97 % 97 % 120 mm[Hg] 72 mm[Hg] Loulou Arizmendi [employer] 4 11:00:28 Date Recorded Body height Body mass index (BMI) Body weight Body temperature Heart rate Oxygen saturation Oxygen saturation in Arterial blood by Pulse oximetry Systolic blood pressure Diastolic blood pressure Provider Name and Address Organization Details Last Updated DateTime 4 165.1 cm 28 kg/m2 29052.5 2 g 97.5 [degF] 50 /min 97 % 97 % 126 mm[Hg] 80 mm[Hg] Jessgerman bah German [facility] [employer] 4 09:53:26 Social History Question Answer Notes LastModified by Organization Details LastModified Time Tobacco Smoking Status Former Smoker quit 2020 Dilma marcelino [facility] [employer] 10/24/2024 13:35:59 What Is Your Level Of Caffeine Consumption? Moderate [id number] Information not available 08/17/2022 In The 14 Days Before Symptom Onset, Have You Had Close Contact With A Laboratory-confi rmed COVID-19 While That Case Was Ill? No [id number] Information not available 08/17/2022 In The 14 Days Before Symptom Onset, Have You Had Close Contact With A Person Who Is Under Investigation For COVID-19 While That Person Was Ill? No [id number] Information not available 08/17/2022 What Type Of Diet Are You Following? REGULAR [email or web address] Information not available 06/27/2024 What Is The Highest Grade Or Level Of School You Have Completed Or The Highest Degree You Have Received? FY36315-0 [email or web address] Information not available 06/27/2024 How Many Days Of Moderate To Strenuous Exercise, Like A Brisk Walk, Did You Do In The Last 7 Days? 45 [email or web address] Information not available 06/27/2024 Have There Been Any Changes To Your Family Or Social Situation? No [email or web address] Information not available 06/27/2024 What Is The Fluoride Status Of Your Home? Fluoridated [email or web address] Information not available 06/27/2024 When Did You Quit Smoking? 1-5yearssincelastci gurjit [email or web address] Information not available 10/24/2024 Are There Any Guns Present In Your Home? No [email or web address] Information not available 06/27/2024 Do You Use Insect Repellent Routinely? No [email or web address] Information not available 06/27/2024 Where Do You Live? SingleLevelHouse [email or web address] Information not available 06/27/2024 What Was The Date Of Your Most Recent Tobacco Screening? 06/27/2024 [email or web address] Information not available 06/27/2024 How Many Children Do You Have? 2 [email or web address] Information not available 06/27/2024 What Is Your Current Pack Years? 10-19packyears Information not available 10/24/2024 Do You Have Any Pets? No [email or web address] Information not available 06/27/2024 What Is Your Relationship Status? [email or web address] Information not available 06/27/2024 Do You Use Your Seat Belt Or Car Seat Routinely? Yes [email or web address] Information not available 06/27/2024 Are You Sexually Active? Yes [email or web address] Information not available 06/27/2024 Do You Have Smoke And Carbon Monoxide Detectors In Your Home? Yes [email or web address] Information not available 06/27/2024 At What Age Did You Start Smoking Tobacco? 14 [id number] Information not available 08/17/2022 Are You Passively Exposed To Smoke? No [email or web address] Information not available 06/27/2024 Are There Any Smokers In Your House? No [email or web address] Information not available 06/27/2024 How Much Tobacco Do You Smoke? 0.25 PPD [id number] Information not available 08/17/2022 What Types Of Sporting Activities Do You Participate In? None [email or web address] Information not available 06/27/2024 Do You Use Sunscreen Routinely? No [email or web address] Information not available 06/27/2024 How Many Years Have You Smoked Tobacco? 41 Information not available 10/24/2024 Have You Recently Traveled Abroad? No [id number] Information not available 08/17/2022 Do You Have Any Dietary Restrictions? No [email or web address] Information not available 06/27/2024 Sex: Unknown Functional Status Question Answer Note LastModified by Organizat ion Details LastModified Time Do you use any illicit or recreational drugs? No [email or web address] Information not available 06/27/2024 What is your level of alcohol consumption? None [id number] Information not available 08/17/2022 Are you currently employed? 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 Occasional [email or web address] Information not available 06/27/2024 Mental Status Question Answer Note LastModified by Organization D etails LastModified Time Do you feel stressed (tense, restless, nervous, or anxious, or unable to sleep at night)? [id number] Information not available 06/27/2024 Family History Relationship Description Onset Age of this Age Resolved Age Notes LastModified by Organization Details LastModified Time Mother Essential hypertension [id number] Not available 08/17/2022 04:44:28 Mother Diabetes mellitus [id number] Not available 08/17/2022 04:44:28 Medical History Condition Response HYPERTENSION Y Immunizations Vaccine Type Date Status Note Provider Nam e and Address Organization Details Recorded Time SARS-COV-2 (COVID-19) vaccine, UNSPECIFIED 1 completed Not Available [facility] 08/17/2022 05:04:05 SARS-COV-2 (COVID-19) vaccine, UNSPECIFIED 1 completed Not Available [facility] 08/17/2022 05:04:05 Past Encounters Encounter ID Performer Location Encounter Start Date Encounter Closed Date Diagnosis/Indication Diagnosis SNOMED-CT Code Diagnosis ICD10 Code Diagnosis Note [id number] Da Del Rio MD [facility] Internal Med [facility] [address] [facility] [place] [address] 12/01/2020 00:00:00 12/01/2020 17:50:03 [id number] Da Del Rio MD [facility] Internal Med [address] [place] [place] [address] 03/16/2021 00:00:00 03/16/2021 16:42:32 [id number] Da Del Rio MD [facility] Internal Med [address] [place] [place] [address] 04/16/2021 00:00:00 04/16/2021 12:00:10 [id number] Andrew carmichael MD [facility] General Surgery [address] [facility] [address] [place] [address] 06/01/2021 00:00:00 06/03/2021 11:45:56 [id number] Andrew carmichael MD [facility] General Surgery [address] [facility] [address] [place] [address] 06/10/2021 00:00:00 06/10/2021 12:24:35 [id number] Da Del Rio MD [facility] Internal Med [address] [facility] [place] [address] 08/23/2021 00:00:00 08/23/2021 15:53:04 [id number] Da Del Rio MD [facility] Internal Med [address] [facility] [place] [address] 12/27/2021 00:00:00 12/27/2021 15:51:32 [id number] Da Del Rio MD [facility] Internal Med [address] [facility] [place] [place] [address] 05/09/2022 00:00:00 05/09/2022 15:50:05 [id number] Da Del Rio MD [facility] Internal Med [address] [facility] [place] [place] [address] 09/12/2022 15:12:22 09/12/2022 16:07:38 Essential hypertension 40704402 I10 under control Sleep apnea 43912393 G47 .30 unable to use CPAP Allergic rhinitis 436448 04 J30.9 Manuela, Flonase OTC Adult heal th examination 935031335 Z00.00 Colonoscop y- 08/28/2019, internal hemorrhoid sPSA- 08/09FLU- Does not wantCOVID- 09/14/20, 10/06/20 Ex-smoker 6440223 Z87.89 1 will get LDCT every year Internal hemorrhoids 904 06242 K64.8 asymptomat ic, drink more water Screening for malignant neoplasm of prostate 898794416 Z12.5 [id number] Da Del Rio MD [facility] [address] [place] [address] 01/09/2023 15:09:01 01/09/2023 15:54:00 Essential hypertension 48256340 I10 under control Sleep apnea 07529357 G47 .30 unable to use CPAP, rec to get mouth piece Allergic rhinitis 234914 04 J30.9 Manuela, Flonase OTC Adult [facility] examination 718018339 Z00.00 Colonoscop y- 08/28/2019, internal hemorrhoid sPSA- 09/17/22FLU- Does not wantCOVID- 09/14/20, 10/06/20 Ex-smoker 9675877 Z87.89 1 will get LDCT every year Internal hemorrhoids 904 84865 K64.8 asymptomat ic, [id number] Da Del Rio MD [facility] Internal Med [address] [place] [address] 03/03/2023 09:55:50 03/03/2023 10:42:20 Adult health examination 072913272 Z00.00 Colonoscop y- 08/28/2019, internal hemorrhoid sPSA- 09/17/22FLU- Does not wantCOVID- 09/14/20, 10/06/20 Depression screening 171 684010 Z13.31 positive, watchful waiting Acute left otitis media 787502841 H66.92 Body mass index 25-29 - overweight 930386086 Z68.29 healthy diet and exercise discussed [id number] Da Del Rio MD [facility] [address] [place] [address] 05/22/2023 15:14:59 05/22/2023 16:03:04 Essential hypertension 68854687 I10 under control Sleep apnea 14940075 G47 .30 unable to use CPAP, try mouth piece, info given Allergic rhinitis 251225 04 J30.9 Manuela, Flonase OTC Ex-smoker 9996598 Z87.89 1 will get LDCT every year Adult [facility] th examination 996565689 Z00.00 Colonoscop y- 08/28/2019, internal hemorrhoid sPSA- 09/17/22FLU- Does not wantCOVID- 09/14/20, 10/06/20 Internal hemorrhoids 904 55812 K64.8 asymptomat ic, [id number] Da Del Rio MD [facility] Internal Med [address] [place] [place] [address] 10/02/2023 15:32:03 10/02/2023 16:16:34 Essential hypertension 32875559 I10 under control Sleep apnea 47424121 G47 .30 unable to use CPAP, try mouth piece, info given Allergic rhinitis 211774 04 J30.9 Flonase OTC Ex-smoker 9274193 Z87.89 1 gets LDCT Adult [facility] examination 259544853 Z00.00 Colonoscop y- 08/28/2019, internal hemorrhoid sLDCT- 05/23/2022 - [place] [facility] - 09/17/22FLU- Does not wantCOVID- 09/14/20, 10/06/20 Internal hemorrhoids 904 28520 K64.8 asymptomat ic, Screening for malignant neoplasm of prostate 446946186 Z12.5 [id number] Da Del Rio MD [facility] Med [address] [place] [place] [address] 01/17/2024 08:58:24 01/17/2024 09:50:56 Transition of care 0327351468 105 Z75.8 Cerebrovas cular accident 503951174 I63.9 making good improvemen t, on asa Slurred speech 888441258 R47.81 much better Essential hypertension 18767956 I10 under control Hyperlipidemia 01514620 E78.5 on meds Low vision left eye, normal vision right eye 4878999725 01976 H54.52A1 advised to see ophthalmol ogy [id number] Da Del Rio MD [facility] Internal [facility] [address] [facility] [place] [address] 02/26/2024 10:52:47 02/26/2024 11:38:11 Cerebrovascular accident 224156712 I63.9 much improved Slurred speech 104533662 R47.81 has improved Essential hypertension 45284297 I10 under control Hyperlipidemia 83620402 E78.5 on meds Sleep apnea 22278602 G47 .30 unable to use CPAP, try mouth piece, info given, discussed [id number] Da Del Rio MD [facility] Internal [address] [facility] [place] [address] 05/07/2024 09:27:58 05/07/2024 10:27:38 Sleep apnea 32981756 G47.30 unable to use CPAP,will get new sleep study, sleep score done, report in the chart [id number] Da Del Rio MD [facility] Internal [facility] [address] [facility] [place] [address] 06/27/2024 10:53:40 06/27/2024 12:08:54 Cerebrovascular accident 803510296 I63.9 IMPROVING , seeing neuro at [facility] Slurred speech 177416358 R47.81 MUCH BETTER Essential hypertension 40672215 I10 under control Hyperlipidemia 50949437 E78.5 on meds Sleep apnea 71960368 G47 .30 NO MORE Allergic rhinitis 133760 04 J30.9 Flonase OTC Internal hemorrhoids 904 50636 K64.8 asymptomat ic, Ex-smoker 1229259 Z87.89 1 gets LDCT Adult heal th examination 768597740 Z00.00 Colonoscop y- 08/28/2019, internal hemorrhoid sLDCT- 05/23/2022 - [place] [facility] - 09/17/22FLU- Does not wantCOVID- 09/14/20, 10/06/20 Urinary symptoms 8132387 08 R39.9 Insomnia 998418671 G47.0 0 Depression screening 171 180860 Z13.31 positive, watchful waiting Normal bod y mass index 41188078 Z68.28 [id number] Da Del Rio MD [facility] Internal Med [address] [place] [place] [address] 10/24/2024 11:42:46 10/24/2024 12:49:30 Cerebrovascular accident 371659827 I63.9 seeing neuro at [facility] Slurred speech 906960346 R47.81 mild Essential hypertension 42920882 I10 under control Hyperlipidemia 76647066 E78.5 on meds Sleep apnea 66365030 G47 .30 NO MORE Allergic rhinitis 762520 04 J30.9 Flonase OTC Internal hemorrhoids 904 69859 K64.8 asymptomat ic, Ex-smoker 6268698 Z87.89 1 gets LDCT Adult heal th examination 041601419 Z00.00 Colonoscop y- 08/28/2019, internal hemorrhoid sLDCT- 4P SA- 10/21/2023 Shingles- Has had 1 goes back for the 2ng this mo (October)Pneum ovax- NEVERFLU- Does not wantCOVID- 09/14/20, 10/06/20 Insomnia 550372817 G47.0 0 better with meds History of clinical finding in subject 977874163 Z87.891 Health Concerns Section Related Observation LastModified by Organization Detai ls LastModified Time None Recorded Concern Status LastModified by Organization Details LastModified Time None Recorded Advance Directives Directive None Recorded Payers Encounter Date Sequence Insurance Name Policy Number Policy Cespedes Covered Member ID Cespedes Member ID Guarantor Name 01/17/2024 1 [employer] [id number] Rafael Evaristo Carlito [id number] Rafael Evaristo Carlito 02/26/2024 1 [employer] [id number] Rafael Evaristo Carlito [id number] Rafael Evaristo Carlito 02/26/2024 1 [place] Rafael Loera Carlito [id number] Rafael Evaristo Carlito 05/07/2024 1 UMR [id number] Rafael Evaristo Carlito [id number] Rafael Evaristo Carlito 05/07/2024 1 [place] Rafael Loera Carlito [id number] Rafael G Carlito 06/27/2024 1 [place] [facility] Rafael Esteban [id number] Rafael Loera Carlito 10/24/2024 1 *SELF PAY* Ca yi Esteban Notes Date Note Type Note Provider Name and Address Organization Details Recorded Time 01/17/2024 text/html He is here for hospital / rehab f/uRecord from the rehab reviewed and hospital record requested.He was initially admitted to [facility] for CVA with left sided weakness, facial drooping and slurred speech.He was seen by neurologistNow on asa and Atorvastatin 80 mgHe was in the rehab and had PT/OT/ Speech therapy, now getting home therapies and making good improvement.He still feels numbness in the left arm/fingers but much betterspeech is much betterNo problem swallowing.He has vision change in the left eye and going to see supervisor pleating. Da Del Rio MD [address], [place], [address], [facility] [employer] 01/17/2024 11:44:25 02/26/2024 text/html Pt is here today for a 6 week follow up from a strokeHas been doing out pt rehab. left hand still with mild numbness.speech has improved, min expressive aphasiano dysphagialeft facial numbness love simproved.Getting Better, getting stronger. appetite is good, lost 5 lbsStill has [facility] follow up with him is in [place] (Domenic Marion @ [facility]) PREVIOUS NOTE:He is here for hospital / rehab f/uRecord from the rehab reviewed and hospital record requested.He was initially admitted to [facility] for CVA with left sided weakness, facial drooping and slurred speech.He was seen by neurologistNow on asa and Atorvastatin 80 mgHe was in the rehab and had PT/OT/ Speech therapy, now getting home therapies and making good improvement.He still feels numbness in the left arm/fingers but much betterspeech is much betterNo problem swallowing.He has vision change in the left eye and going to see supervisor pleating. Da Del Rio MD [address], [place], [address], [employer] 02/26/2024 11:37:10 05/07/2024 text/html Pt is here today for a order for a sleep study, Last one was in 2011 and he is needing new appliance for his CPAPHe can't use cpap, hard to breath with machinecpap is 12 yrs oldHe has lost some weighthas some symptoms of sleep apneaHe has many medical problems Da Del Rio MD [address], [place], [address], [employer] 05/07/2024 10:23:55 06/27/2024 text/html Pt is here today for 4 month f/u. pt is fasting (mediare) Pt is having trouble sleeping for periods of time with frequency at night.urine has drill sharpener appearance but with a strong odor..when pt urinates he feels like he has to go again after he finishes urinating and sometimes feel like he is still having drops of urnine still coming out after he is done an pulled pants back up. CVA- 12/10, Pt is still having weakness on left side since stroke and forgetfulness like turning off the sink when done.Pt is also having sob with light exercisehe is out of pt rehab. left hand still with mild numbness.speech has improved, min expressive aphasiano dysphagia Hypertension- on meds and under controlMeds- Lisinopril 5 mg daily Allergic Rhinitis- better with medsMeds- Manuela and Flonase prn (OTC) Sleep Apnea- recent sleep study in 06/11 showed no sleep apnea EX- Smoker- quit 2020- LDCT 10/10Covid 19 in 08/10, no complications Da Del Rio MD [address], [place], [address], [employer] 06/27/2024 13:04:50 10/24/2024 text/html Pt is here today for 4 month f/u.PT IS NOT FASTING ( Self-Pay ) CVA- 12/10, Pt is still having weakness on left side since stroke and forgetfulness like turning off the sink when done. still has numbness on the left side of the face.Pt is also having sob with light exercisehe is out of pt rehab. left hand still with mild numbness.speech has improved, min expressive aphasiano dysphagiaHe is still not back to work yet He did not pass the test for driving, does not have good coordination Hypertension- on meds and under controlMeds- Lisinopril 5 mg daily Hyperlipidemia- On medsMeds- Atorvastatin 80mg daily Allergic Rhinitis- better with medsMeds- Manuela and Flonase prn (OTC) Sleep Apnea- recent sleep study in 06/11 showed no sleep apnea Insomnia- Meds helpMeds- Trazodone 50mg HS EX- Smoker- quit 2020- LDCT 10/10 Covid 19 in 08/10, no complications Da Del Rio MD [address] [facility] [facility] [address], [place], [address], [facility] [employer] 10/24/2024 12:23:16
== END 2024-11-19 09:35 | disposition home or self-care (01) ==
LOC: ANHIMG 09:40
PROVIDERS: PCP Internal Medicine; Visit Provider Internal Medicine
DX: Z12.2 Encounter for screening for malignant neoplasm of respiratory organs (principal); Z87.891 Personal history of nicotine dependence
CPT/HCPCS: 71271